=== PATIENT | male | born 1960 | race Caucasian/White ===

== ENCOUNTER 2017-02-09 13:29 | Emergency (ER) | payer MEDICAID ==
[2017-02-09 13:37] VITALS: BP 135/73
[2017-02-09] MEDS ORDERED: HYDROcodone/ACETAMINOPHEN 1 EACH TABLET PO ONE (14:01)
--- NOTE | 2017-02-09 14:01 | ERNOTE ---
Back Pain ER HPI Date of Service: 02/09/17 Presenting Symptoms: hx chronic back pain Time Seen by Provider: 02/09/17 13:46 Source: patient, RN notes reviewed, past records, other - [place] [employer] Exam Limitations: no limitations Immunizations: IMMUNIZATION HX Immunizations Up to Date Yes History of Influenza Vaccine Yes Hx Pneumococcal Vaccination No Allergies/Adverse Reactions: Allergies No Known Allergies Allergy (Verified 02/09/17 13:37) Home Medications: HOME MEDICATIONS Pregabalin [Lyrica] 300 mg PO DAILY 05/07/16 [Last Taken Unknown] Narrative: 56 y/o male presents to the ED for low back pain. He has been here for this in the past and it is a chronic issue. He reports having a specialist in [place] that he sees but he cannot get in for 3 more days. According to his [employer] OFF[employer] record, he has still been obtaining narcotic prescriptions from multiple prescribers in several different locations. Location of pain: Reports: lower back Activities at Onset: Reports: none Recent Injury?: Reports: no Associated Symptoms: Reports: numbess/weakness in legs. Denies: constipation/ incontinence, problems urinating, difficulty walking Prior Treament: Reports: similar symptoms before Review of Systems - Review of Systems Constitutional: Absent: recent illness, fever EYE: Present: no symptoms reported ENT: Present: no symptoms reported Respiratory: Present: no symptoms reported Cardiology: Present: no symptoms reported Gastrointestinal/Abdominal: Present: no symptoms reported Genitourinary: Present: no symptoms reported Musculoskeletal: Present: back pain, muscle pain. Absent: joint pain, joint swelling Skin: Absent: rash, lesions Neurological: Present: weakness, numbness, tingling Endocrine: Present: no symptoms reported Hematologic/Lymphatic: Present: no symptoms reported Psych: Present: no symptoms reported - Patient's Past Medical History Patient History - Medical: Chronic Pain Patient History - Cardiac/Respiratory: No pertinent hx Patient History - Cancer: No Hx of Cancer Patient History - Surgical Procedures: Other - Family History Mother Family History - Medical: No pertinent hx Father Family History - Medical: No pertinent hx - Social History Living Situations: home Does anyone smoke in the home?: Yes Smoking Status: Current every day smoker Alcohol Use: none Drug Use: none - Immunizations Immunizations Up to Date: Yes Hx Pneumococcal Vaccination: No History of Influenza Vaccine: Yes Physical Exam - Physical Exam General Appearance: Present: wd/wn, alert, no apparent distress, other - Appears uncomfortable Head Exam: Present: normal inspection Respiratory: Present: no respiratory distress, no accessory muscle use Back Exam: Present: decreased range of motion Extremity Exam: Present: normal inspection, normal range of motion Neurological Exam: Present: alert, oriented, normal mood/affect Skin Exam: Present: normal color, warm/dry ED Progress - Vital Signs Patient's Vital Signs:: I have reviewed the patient's vital signs. Vital Signs: Vital Signs 02/09/17 13:32 Temperature 36.9 C Pulse Rate 76 Respiratory 12 Rate Blood Pressure 135/73 O2 Sat by Pulse 99 Oximetry - Progress/Reassessment Chief Complaint: Back Pain Progress:: Unchanged Plan - Plan Plan: Discussed with patient that chronic pain is not managed through the ED, and in light of the numerous prescriptions, prescribers and pharmacies in his [employer] record that I am not able to prescribe pain medication for him. 2 [place] given in department and patient discharged. Departure Clinical Impression: Chronic back pain Qualifiers: Back pain location: low back pain Back pain laterality: unspecified Sciatica presence: unspecified whether sciatica present Qualified Code(s): M54.5 - Low back pain - Departure Disposition: Home Follow Up Needed Condition: Stable Instructions: Chronic Pain, Form - Excuse from Work, School, or Physical Activity
[2017-02-09] MEDS ORDERED: HYDROcodone/ACETAMINOPHEN 1 EACH TABLET ONE (14:03)
== END 2017-02-09 14:07 | disposition home or self-care (01) ==
LOC: ER 13:29
DX: M54.5 Low back pain (principal); G89.29 Other chronic pain; F17.200 Nicotine dependence, unspecified, uncomplicated